=== PATIENT | female | born 1975 | race Caucasian/White ===

== ENCOUNTER 2017-04-19 00:37 | Emergency (ER) | payer OTHER ==
[2017-04-19 00:51] VITALS: TEMP 97.9
[2017-04-19] MEDS ORDERED: NS 1,000 ML IV ONE (01:05)
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
[2017-04-19] MEDS ORDERED: IOPAMIDOL (ISOVUE-300) 100 ML BTL ONE (01:23)
[2017-04-19] MEDS ORDERED: CYCLOBENZAPRINE 10MG PREPACK#3 BTL TAKEHOME ONE (02:21)
[2017-04-19 03:21] VITALS: BP 132/84; PULSE 88; RESP 16; O2SAT 97
== END 2017-04-19 03:21 | disposition home or self-care (01) ==
DX: S16.1XXA Strain of muscle, fascia and tendon at neck level, initial encounter (principal); S29.9XXA Unspecified injury of thorax, initial encounter; V49.50XA Passenger injured in collision with unspecified motor vehicles in traffic accident, initial encounter; Y92.410 Unspecified street and highway as the place of occurrence of the external cause
CPT/HCPCS: 82947-QW; Q9967

== ENCOUNTER 2017-06-04 18:39 | Observation (INO) | payer OTHER ==
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
[2017-06-04 19:48] LABS: % IMMATURE GRANULYOCYTES 0.6 % (0.0-1.1); ABSOLUTE IMMATURE GRANULOCYTES 0.07 10^3/uL (0.00-0.10); ADD DIFF? NO; ADD MORPH? NO; ADD SCAN? NO; ATYPICAL LYMPHOCYTE FLAG 0 (0-99); FRAGMENT RBC FLAG 0 (0-99); HEMATOCRIT 46.1 % (38.0-47.0); HEMOGLOBIN 16.2 g/dL (12.6-16.3); LEFT SHIFT FLG 0 (0-99); LIPEMIA HEMOLYSIS FLAG 90 (0-99); MEAN CELL HEMOGLOBIN 31.6 pg (27.9-34.1); MEAN CELL HEMOGLOBIN CONCENTR. 35.1 g/dL (32.4-36.7); PLATELET CLUMPS FLAG 0 (0-99); PLATELET COUNT 378 10^3/uL (150-400); RED BLOOD CELL COUNT 5.12 10^6/uL (4.18-5.33); RED CELL DISTRIBUTION WIDTH 13.6 % (11.5-15.2)
[2017-06-04 20:19] LABS: SEDIMENTATION RATE 9 MM/HR (0-20)
[2017-06-04] MEDS ORDERED: GADOBUTROL 10 ML VIAL IVP ONE (20:26)
[2017-06-04 20:37] LABS: ALANINE AMINOTRANSFERASE 42 IU/L (9-52); ALBUMIN 4.7 g/dL (3.5-5.0); ALKALINE PHOSPHATASE 74 IU/L (38-126); ANION GAP 12 mEq/L (8-16); ASPARTATE AMINOTRANSFERASE 25 IU/L (14-46); BILIRUBIN,TOTAL 0.3 mg/dL (0.1-1.4); BILIRUBIN-CONJUGATED 0.3 mg/dL (0.0-0.5); CALCIUM 9.7 mg/dL (8.5-10.4); CARBON DIOXIDE 27 mEq/l (22-31); CHLORIDE 99 mEq/L (97-110); CREATININE 0.9 mg/dL (0.6-1.0); GLOMERULAR FILTRATION RATE > 60; GLUCOSE 95 mg/dL (70-100); POTASSIUM 4.3 mEq/L (3.5-5.2); SODIUM 138 mEq/L (134-144); TOTAL PROTEIN 7.4 g/dL (6.3-8.2)
[2017-06-04 20:48] LABS: TROPONIN I < 0.012 ng/mL (0.000-0.034)
[2017-06-04 21:11] LABS: COLOR YELLOW; LEUKOCYTE ESTERASE,URINE NEGATIVE (NEGATIVE); NITRITE,URINE NEGATIVE (NEGATIVE)
--- NOTE | 2017-06-04 21:37 | CPEKG ---
Heart Rate: 95 RR Interval: 632 P-R Interval: 172 QRSD Interval: 74 QT Interval: 348 QTC Interval: 438 P [place]: 56 QRS [place]: 26 T Wave [place]: 41 EKG Severity - NORMAL ECG - EKG Impression: SINUS RHYTHM Electronically Signed By: Narcisa Talbot 05-Jun-2017 07:15:07
[2017-06-04] MEDS ORDERED: LORazepam 0.5 MG TAB PO PRN (22:51)
[2017-06-04] MEDS ORDERED: ONDANSETRON 4 MG/2 ML VIAL IVP PRN (22:51)
[2017-06-04] MEDS ORDERED: ACETAMINOPHEN 325 MG TAB PO PRN (22:51)
[2017-06-05] MEDS ORDERED: MOBIC 15 MG PO PRN (03:10)
[2017-06-05] MEDS ORDERED: CYCLOBENZAPRINE 10 MG TAB PO PRN (03:11)
[2017-06-05] MEDS ORDERED: lamoTRIgine 100 MG TAB PO SCH ×2 (03:15→10:00)
[2017-06-05] MEDS ORDERED: MELATONIN 3 MG TAB PO SCH ×2 (03:15→21:00)
[2017-06-05] MEDS ORDERED: NORTRIPTYLINE HCL 10 MG CAP PO SCH (03:15)
[2017-06-05] MEDS ORDERED: ZOLPIDEM TARTRATE 5 MG TAB PO PRN (03:39)
[2017-06-05] MEDS: GABAPENTIN 300 MG CAP PO SCH ×3 (03:45→15:49)
[2017-06-05] MEDS ORDERED: LIDOCAINE 5% 1 EA PATCH TD SCH (04:00)
[2017-06-05 04:55] LABS: % IMMATURE GRANULYOCYTES 0.6 % (0.0-1.1); ABSOLUTE IMMATURE GRANULOCYTES 0.06 10^3/uL (0.00-0.10); ADD DIFF? NO; ADD MORPH? NO; ADD SCAN? NO; ATYPICAL LYMPHOCYTE FLAG 0 (0-99); FRAGMENT RBC FLAG 0 (0-99); HEMATOCRIT 39.9 % (38.0-47.0); HEMOGLOBIN 13.5 g/dL (12.6-16.3); LEFT SHIFT FLG 0 (0-99); LIPEMIA HEMOLYSIS FLAG 90 (0-99); MEAN CELL HEMOGLOBIN 30.5 pg (27.9-34.1); MEAN CELL HEMOGLOBIN CONCENTR. 33.8 g/dL (32.4-36.7); MEAN CELL VOLUME 90.3 fL (81.5-99.8); MEAN PLATELET VOLUME 9.2 fL (8.7-11.7); PLATELET CLUMPS FLAG 0 (0-99); PLATELET COUNT 337 10^3/uL (150-400); RED BLOOD CELL COUNT 4.42 10^6/uL (4.18-5.33); RED CELL DISTRIBUTION WIDTH 13.5 % (11.5-15.2)
[2017-06-05 05:18] LABS: ANION GAP 10 mEq/L (8-16); CARBON DIOXIDE 29 mEq/l (22-31); CHLORIDE 101 mEq/L (97-110); CREATININE 0.8 mg/dL (0.6-1.0); GLOMERULAR FILTRATION RATE > 60; GLUCOSE 83 mg/dL (70-100); POTASSIUM 4.2 mEq/L (3.5-5.2); SODIUM 140 mEq/L (134-144)
[2017-06-05] MEDS ORDERED: LEVOTHYROXINE 50 MCG TAB PO SCH ×2 (06:00→09:45)
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
[2017-06-05] MEDS ORDERED: NON-FORMULARY NEW DRUG (Meloxicam [Mobic 15 Mg] 15 MG) PO PRN (09:43)
[2017-06-05] MEDS ORDERED: NON-FORMULARY NEW DRUG (Lamotrigine [Lamictal] 300 MG) PO SCH (09:45)
[2017-06-05] MEDS ORDERED: Meloxicam [Mobic 15 Mg] 15 MG PO PRN (09:48)
[2017-06-05] MEDS ORDERED: NS 500 ML IV ONE (12:29)
[2017-06-05] MEDS ORDERED: LORazepam 2 MG/ML INJ IVP ONE (12:29)
--- NOTE | 2017-06-05 12:34 | PDDCSUM ---
Discharge Summary Discharge Summary: Dates of service: 06/05/17 Consultations: none Procedures: brain mri, c spine mri Hospital course by problem: # presyncope: in setting of being on multiple centrally acting medications, post consussion syndrome and severe anxiety. has not recurred. No cardiac abnormalities noted on tele monitoring. suspect related to meds/post concussion syndrome # post concussion syndrome: with daily REINOSO, no energy and significant emotional lability, crying and laughing frequently and inappropriately. She is followed by Dr. Heart with concussion group, recommend she also obtain f/u with Dr. Ann given extreme sxs. Recommend continued low stimulation. # insomnia: patient states sleep has been impossible but overnight got ambien and was able to sleep, concern that lack of sleep is contributing to her post concussion sxs, dc home with rx for ambien # ptsd/bipolar/anxiety: as above sxs are now quite extreme, per her and her were previously well controlled # hypothyroid: continue lt4 Dc home f/u with pcp, neurology, concussion therapists/doctors > 35 min spent in dc more than half in face to face counseling of patient and her regarding f/u care plans and current situation
[2017-06-05] MEDS ORDERED: GLYCERIN ADULT 1 EACH SUPP PR ONE (13:01)
[2017-06-05 15:28] VITALS: BP 124/93; PULSE 98; RESP 16; TEMP 98.7; O2SAT 94
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
[2017-06-05] MEDS ORDERED: GABAPENTIN 300 MG CAP PO SCH (16:00)
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
[2017-06-05] MEDS ORDERED: PATCH REMOVAL 1 EA PATCH TD SCH (21:00)
[2017-06-06] MEDS ORDERED: CHOLECALCIFEROL VIT D3 1,000 UNITS TAB PO SCH (09:00)
== END 2017-06-05 16:22 | disposition home or self-care (01) ==
LOC: INTOOBSV 21:33 → F3E 22:05
PROVIDERS: ADMIT Internal Medicine; ATTEND Internal Medicine
DX: R55 Syncope and collapse (principal); F07.81 Postconcussional syndrome; G47.00 Insomnia, unspecified; F43.10 Post-traumatic stress disorder, unspecified; F31.9 Bipolar disorder, unspecified; F41.9 Anxiety disorder, unspecified; E03.9 Hypothyroidism, unspecified
CPT/HCPCS: 70553; 72141; 92523; 93005; 97162; 97165; 97535; G0378; 84480-90; A9585; J2060

== ENCOUNTER 2017-07-29 16:45 | Observation (INO) | payer OTHER ==
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
--- NOTE | 2017-07-29 17:02 | CPEKG ---
Heart Rate: 84 RR Interval: 714 P-R Interval: 180 QRSD Interval: 88 QT Interval: 364 QTC Interval: 431 P [place]: 87 QRS [place]: 60 T Wave [place]: 43 EKG Severity - NORMAL ECG - EKG Impression: SINUS RHYTHM Electronically Signed By: Griffin Coelho 29-Jul-2017 17:07:22
[2017-07-29 17:10] LABS: PLATELET COUNT 333 10^3/uL (150-400)
[2017-07-29 17:23] LABS: INR 1.02 (0.83-1.16); PROTIME(PATIENT) 13.6 SEC (12.0-15.0)
[2017-07-29] MEDS ORDERED: NORTRIPTYLINE HCL 10 MG CAP PO SCH (21:00)
[2017-07-29] MEDS ORDERED: MELATONIN 3 MG TAB PO SCH (21:00)
[2017-07-29] MEDS ORDERED: ONDANSETRON DISINTEGRATING 4 MG TAB PO PRN (21:18)
[2017-07-29] MEDS ORDERED: ONDANSETRON 4 MG/2 ML VIAL IVP PRN (21:18)
[2017-07-29] MEDS ORDERED: ZOLPIDEM TARTRATE 5 MG TAB PO PRN (21:19)
[2017-07-29] MEDS ORDERED: CYCLOBENZAPRINE 10 MG TAB PO PRN (21:19)
[2017-07-29] MEDS ORDERED: Meloxicam [Mobic] 15 MG PO PRN (21:19)
[2017-07-29] MEDS ORDERED: diphenhydrAMINE 25 MG CAP PO PRN (21:19)
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
[2017-07-29] MEDS: ACETAMINOPHEN 325 MG TAB PO PRN (21:54)
[2017-07-29] MEDS: GABAPENTIN 300 MG CAP PO SCH (21:54)
[2017-07-30] MEDS ORDERED: traZODone 50 MG TAB PO PRN (00:05)
[2017-07-30 00:33] VITALS: RESP 16
[2017-07-30] MEDS ORDERED: LEVOTHYROXINE 50 MCG TAB PO SCH (06:00)
[2017-07-30] MEDS: ACETAMINOPHEN 325 MG TAB PO PRN (07:56)
[2017-07-30] MEDS: GABAPENTIN 300 MG CAP PO SCH (07:57)
[2017-07-30] MEDS ORDERED: lamoTRIgine 100 MG TAB PO SCH (09:00)
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
[2017-07-30 11:24] VITALS: BP 112/66; PULSE 66; TEMP 98; O2SAT 93
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
--- NOTE | 2017-07-30 15:38 | ASDISCHSUM ---
Discharge Information Plan Status:Home with No Needs Medically Cleared to Leave: Discharge Date:07/30/2017 12:52 PM CM D/C Disposition:Home, Routine, Self-Care ADT D/C Disposition:Home, Routine, Self-Care Projected Discharge Date:07/30/2017 12:52 PM Transportation at D/C:Family Discharge Delay Reason: Follow-Up Date:07/30/2017 12:52 PM Discharge Slot: Final Diagnosis: Placement Information Patient Contact Information Contact Name:EDWARD Relationship: Address:[address] [place] [address] Home Phone: City:[place] Alternate Phone: State/Zip Code:[place] [address] Email: Financial Information Financial Class:HMO and PPO Plans [facility] Primary Plan Number:[id number] Secondary Plan Desc: Secondary Plan Number: Assessment Information Intervention Information
== END 2017-07-30 12:52 | disposition home or self-care (01) ==
LOC: F3N 20:47
PROVIDERS: ADMIT Internal Medicine; ATTEND Family Medicine
DX: R25.1 Tremor, unspecified (principal); R47.1 Dysarthria and anarthria; F43.10 Post-traumatic stress disorder, unspecified; F44.4 Conversion disorder with motor symptom or deficit; F31.9 Bipolar disorder, unspecified; E03.9 Hypothyroidism, unspecified; M50.30 Other cervical disc degeneration, unspecified cervical region; V89.9XXS Person injured in unspecified vehicle accident, sequela; Z87.820 Personal history of traumatic brain injury
CPT/HCPCS: 70450; 70551; 93005; 99285; G0378; 82947-QW